=== PATIENT | male | born 1985 | race Caucasian/White ===

== ENCOUNTER 2020-03-12 18:28 | Emergency (ER) | payer BC, SELFPAY ==
[2020-03-12 18:34] VITALS: BP 146/93; PULSE 87; RESP 18; TEMP 36.8; O2SAT 100
[2020-03-12 18:37] VITALS: O2SAT 100
--- NOTE | 2020-03-12 19:17 | ED.GENADULT ---
HPI - General Adult General Chief complaint: Upper Respiratory Infection <Antonio Lou PA-C - Last Filed: 03/12/20 19:31> Stated complaint: cold symptoms <Antonio Lou PA-C - Last Filed: 03/12/20 19:31> Time Seen by Provider: 03/12/20 18:47 <Antonio Lou PA-C - Last Filed: 03/12/20 19:31> Source: patient <Antonio Lou PA-C - Last Filed: 03/12/20 19:31> Mode of arrival: ambulatory <Antonio Lou PA-C - Last Filed: 03/12/20 19:31> Limitations: no limitations <Antonio Lou PA-C - Last Filed: 03/12/20 19:31> History of Present Illness HPI narrative: Patient is a 34-year-old male who presents to emergency department noting that on he and his girlfriend developed upper respiratory symptoms have had fatigue congestion rhinorrhea no cough. Patient denies vomiting or diarrhea. Patient notes that he feels as though he is beginning to feel better. Patient notes that his girlfriend did have upper respiratory infection that was described as bacterial and she is also starting to get better. <Antonio Lou PA-C - Last Filed: 03/12/20 19:31> Related Data Home medications: Home Medications Medication Instructions Recorded Confirmed No Home Medications 03/12/20 03/12/20 <Antonio Lou PA-C - Last Filed: 03/12/20 19:31> Allergies/adverse reactions: Allergies Allergy/AdvReac Type Severity Reaction Status Date / Time No Known Allergies Allergy Verified 03/12/20 18:38 <Antonio Lou PA-C - Last Filed: 03/12/20 19:31> Review of Systems Review of Systems: All systems reviewed & are unremarkable except as noted in HPI and below <Antonio Lou PA-C - Last Filed: 03/12/20 19:31> [facility] Social History Social History: Social History (Updated 03/12/20 @ 19:28 by Antonio Lou PA-C) Tobacco type: e-cigarettes/vaping Gender identity (if verbalized by the patient): Male <Antonio Lou PA-C - Last Filed: 03/12/20 19:31> Exam Narrative: Exam Narrative: GENERAL: Well-appearing, well-nourished, and in no acute distress. HEAD: Normocephalic, atraumatic. EYES: PERRLA and EOMI. ENT: Nares clear, no rhinorrhea or epistaxis. Mucous membranes moist. Oropharynx without tonsillar hypertrophy exudate or other lesions. CHEST: Clear to auscultation. No respiratory distress. No wheezes rales or rhonchi HEART: Regular rate and rhythm. No murmur heard. EXTREMITIES: Normal range of motion. No edema. SKIN: Warm, dry, no rash. NEURO: No focal deficits. Alert and oriented x3. Cranial nerves II through XII grossly intact PSYCH: Normal mood and affect. <FAVIO Cardenas Last Filed: 03/12/20 19:31> Course Course Emergency Course: Patient in the room at this time aware of case findings treatment plan and diagnosis. Patient will be tested for COVID-19 advised to self quarantine until he has his results and given a primary care doctor that he can follow-up with as well <FAVIO Cardenas Last Filed: 03/12/20 19:31> Vital Signs Vital signs: Vital Signs Temperature 36.8 C 03/12/20 18:34 Pulse Rate 87 03/12/20 18:34 Respiratory Rate 18 03/12/20 18:34 Blood Pressure 146/93 H 03/12/20 18:34 Pulse Oximetry 100 03/12/20 18:34 Temperature 36.8 C 03/12/20 18:34 Pulse Rate 87 03/12/20 18:34 Respiratory Rate 18 03/12/20 18:34 Blood Pressure 146/93 H 03/12/20 18:34 Pulse Oximetry 100 03/12/20 18:37 <FAVIO Cardenas Last Filed: 03/12/20 19:31> Vital Signs Temperature 36.8 C 03/12/20 18:34 Pulse Rate 87 03/12/20 18:34 Respiratory Rate 18 03/12/20 18:34 Blood Pressure 146/93 H 03/12/20 18:34 Pulse Oximetry 100 03/12/20 18:34 Temperature 36.8 C 03/12/20 18:34 Pulse Rate 87 03/12/20 18:34 Respiratory Rate 18 03/12/20 18:34 Blood Pressure 146/93 H 03/12/20 18:34 Pulse Oximetry 100 03/12/20 18:37 <Mague Iglesias M
[2020-03-12 20:41] VITALS: BP 139/87; PULSE 82; RESP 20; O2SAT 97
[2020-03-13 17:02] LABS: SARS-CoV-2 RNA PCR Negative
== END 2020-03-12 20:45 | disposition home or self-care (01) ==
PROVIDERS: Emergency Medicine Emergency Medical Services; Emergency Provider Emergency Medicine
DX: J06.9 Acute upper respiratory infection, unspecified (principal); Z20.828 Contact with and (suspected) exposure to other viral communicable diseases
CPT/HCPCS: 87635; 99283; C9803; U0003

== ENCOUNTER 2021-10-29 16:58 | Emergency (ER) | payer OTHER, SELFPAY ==
--- NOTE | ~2021-10-29 | XR_ITS ---
XR ankle LT min 3V DATE: 10/29/2021 17:21 INDICATION: Injury. Lateral ankle swelling TECHNIQUE: 4 views COMPARISON: None FINDINGS: Very prominent anterolateral soft tissue swelling. No fracture or dislocation of the ankle or disruption of the ankle mortise is detected. IMPRESSION: Very prominent anterolateral soft tissue swelling of the ankle; no fracture or dislocatio n is detected Reviewed, dictated and finalized at location A. IMPRESSION: Very prominent anterolateral soft tissue swelling of the ankle; no fracture or dislocation is detected
[2021-10-29 17:10] VITALS: BP 141/72; PULSE 67; RESP 16; TEMP 37.3; O2SAT 100
--- NOTE | 2021-10-29 17:16 | ED.LOWEXIN ---
HPI - Extremity Injury (Lower) General Chief Complaint: Extremity Injury, Lower Stated Complaint: Left ankle Pain Time Seen by Provider: 10/29/21 17:17 Source: patient, RN notes reviewed and old records reviewed Mode of arrival: ambulatory Limitations: no limitations History of Present Illness HPI Narrative: 36-year-old male presents to the [facility] with complaints of left ankle pain. Patient states approximately 1530 today he was jumping off a truck and went to land on his feet when he twisted his left ankle inversely. Related Data Allergies Allergy/AdvReac Type Severity Reaction Status Date / Time No Known Allergies Allergy Verified 10/29/21 17:02 Review of Systems Review of Systems: All systems reviewed & are unremarkable except as noted in HPI and below Constitutional: Constitutional: Reports no additional constitutional complaints Eyes: Eyes: Reports no additional eye complaints ENT: Reports system reviewed and no additional complaints, except as documented Cardiovascular: Cardiovascular: Reports no additional cardiovascular complaints Respiratory: Respiratory: Reports no additional respiratory complaints Gastrointestinal: Gastrointestinal: Reports no additional gastrointestinal complaints Musculoskeletal: Musculoskeletal: Reports as per HPI, Reports arthralgias (Left lateral ankle) and Reports joint swelling (Left lateral) Integumentary/Breasts: Skin/Breast: Reports system reviewed and no additional complaints, except as docu Neurologic: Reports system reviewed and no additional complaints, except as documented Psychiatric: Psychiatric: Reports no additional psychiatric complaints Allergic/Immunologic: Allergic/Immunologic: Reports no additional allergic/immunologic complaints PMFSH Social History Social History Tobacco type: e-cigarettes/vaping Gender identity (if verbalized by the patient): Male Comments At the time of my signature, I reviewed and agree with the nursing past medical, surgical, social, and family history. There is no relevant family history pertinent to the patient complaint. Exam Const: General: healthy appearing, no acute distress and alert Nutritional Appearance: well nourished Orientation/consciousness: patient oriented x3 Limitations: no limitations HENMT: Head: normal to inspection Ears: external ears normal Eyes: Pupils: Equal, round and reactive pupils present Neck: Neck: normal visual inspection, no lymphadenopathy and no meningeal signs Chest: Chest palpation & inspection: normal inspection of the chest Resp: Effort & Inspection: normal respiratory effort Auscultation: clear to auscultation bilaterally Cardio: Rate: regular rate Rhythm: regular rhythm Back/Spine/Pelvis: Back: no CVA tenderness Skin: General skin exam: normal color Rashes: no rashes Neuro: General: patient oriented x3, moves all extremities, no meningeal signs and no focal motor deficits Cranial nerves: Yes Equal, round and reactive pupils present Speech: normal speech Gait exam (Neuro): Normal gait present Extrem: Left lower extremity: ankle Details: tenderness Location: of the lateral malleolus, swelling Details: laterally and ecchymosis (lateral malleolus) Psych: Appearance: grossly normal and well kempt Mental Status: mental status grossly normal Affect: normal affect Attitude: cooperative Thought content: Yes Normal thought content present Course Course Emergency Course: Discharge instructions reviewed with patient, as well as provided in writing per nursing staff. The instructions also include specific and strict return/GO TO THE ER as well as f/u information. All questions have been answered, and the patient deny any further questions with discharge and discharge plan. Some parts of this dictation were generated by voice recognition software and may contain typographical and/or grammatical inaccuracies. Level of Care: Exp
== END 2021-10-29 17:43 | disposition home or self-care (01) ==
PROVIDERS: Emergency Provider Nurse Practitioner
DX: S93.402A Sprain of unspecified ligament of left ankle, initial encounter (principal); S96.912A Strain of unspecified muscle and tendon at ankle and foot level, left foot, initial encounter; X50.9XXA Other and unspecified overexertion or strenuous movements or postures, initial encounter; F17.290 Nicotine dependence, other tobacco product, uncomplicated
CPT/HCPCS: 73610; 99213; G0463

== ENCOUNTER 2025-06-06 12:25 | Emergency (ER) | payer OTHER, SELFPAY ==
--- NOTE | 2025-06-06 12:27 | ED_ITS ---
HPI - General Adult General Chief complaint: Nausea/Vomiting/Diarrhea Stated complaint: Possibly Food Poisoning Time Seen by Provider: 06/06/25 12:36 Source: patient, RN notes reviewed and old records reviewed Mode of arrival: ambulatory Limitations: no limitations History of Present Illness HPI narrative: 39-year-old male presents to the [facility] with concerns of food poisoning. Patient states that Thursday he feels like he may have eaten something felt like he had food poisoning. Patient reports nausea vomiting diarrhea after eating. States that the nausea and vomiting are better today. Still had a couple of episodes of diarrhea this morning, had to call in sick to work. Denies fevers, denies any pain. Reports that he has a full feeling of the abdomen. Has taken Pepto-Bismol and Imodium. Able to keep water down, able to drink Pedialyte Onset (ago): day(s) (6) Related Data Allergies Allergy/AdvReac Type Severity Reaction Status Date / Time No Known Allergies Allergy Verified 06/06/25 12:27 Review of Systems Review of Systems: All systems reviewed & are unremarkable except as noted in HPI and below Constitutional: Constitutional: Reports no additional constitutional complaints ENT: Reports system reviewed and no additional complaints, except as documented Cardiovascular: Cardiovascular: Reports no additional cardiovascular complaints, Denies chest pain and Denies dyspnea Respiratory: Respiratory: Reports no additional respiratory complaints, Denies chest congestion, Denies cough and Denies dyspnea Gastrointestinal: Gastrointestinal: Reports as per HPI, Denies abdominal pain, Denies belching, Reports bloating, Reports diarrhea, Reports nausea and Reports vomiting Musculoskeletal: Musculoskeletal: Reports no additional musculoskeletal complaints Integumentary/Breasts: Skin/Breast: Reports system reviewed and no additional complaints, except as docu PMFSH Social History Social History Tobacco type: e-cigarettes/vaping Gender identity (if verbalized by the patient): Male Comments At the time of my signature, I reviewed and agree with the nursing past medical, surgical, social, and family history. There is no relevant family history pertinent to the patient complaint. Exam Const: General: cooperative, healthy appearing, comfortable, no acute distress, well developed, alert and well nourished Nutritional Appearance: well nourished Orientation/consciousness: patient oriented x3 Limitations: no limitations HENMT: Head: normal to inspection Ears: hearing grossly normal bilaterally, external ears normal, TM's normal bilaterally, EAC's normal, mastoids normal and no periauricular adenopathy Mouth: Yes Normal oral and palatal mucosa present, Yes lip normal, Yes tongue normal and Yes moist mucous membranes Throat: posterior oropharynx normal, uvula midline and no uvular edema Eyes: General: appearance normal, both eyes and all related structures Alignment and Position: alignment normal Neck: Neck: normal visual inspection, full ROM, no lymphadenopathy and no meningeal signs Chest: Chest palpation & inspection: normal inspection of the chest Resp: Effort & Inspection: normal respiratory effort and able to speak in complete sentences Auscultation: clear to auscultation bilaterally, no aircraft instrument mechanic ckles, no rales, no rhonchi and no wheezes Cardio: Rate: regular rate GI: GI Palp: No abdominal tenderness and Yes Soft to palpation Auscultation: Hyperactive bowel sounds present Skin: General skin exam: normal color and no rashes or lesions noted Neuro: General: patient oriented x3, gait normal, moves all extremities and no meningeal signs Cognition (Neuro): normal cognition Speech: normal speech Gait exam (Neuro): Normal gait present Extrem: General: normal to inspection, full ROM, capillary refill normal and normal gait Psych: Appearance: grossly normal and well kempt Mental Status: mental status grossly normal Speech and movement: Normal speech and movement present and Clear speech present Affect: normal affect Attitude: cooperative Course Course Level of Care: Express Care Visit Vital Signs Vital signs: Vital Signs Temperature 99.1 F 06/06/25 12:36 Pulse Rate 70 06/06/25 12:36 Respiratory Rate 20 06/06/25 12:36 Blood Pressure 155/84 H 06/06/25 12:36 Pulse Oximetry 97 06/06/25 12:36 Oxygen Delivery Room Air 06/06/25 12:36 Temperature 99.1 F 06/06/25 12:36 Pulse Rate 70 06/06/25 12:36 Respiratory Rate 20 06/06/25 12:36 Blood Pressure 155/84 H 06/06/25 12:36 Pulse Oximetry 97 06/06/25 12:36 Oxygen Delivery Room Air 06/06/25 12:36 reviewed MDM MDM Narrative Medical decision making narrative: patient sitting in exam room. Patient is nontoxic, vitals are stable except blood pressure elevated. Patient presents with concerns for food poisoning, symptoms have improved. Still having some nausea and diarrhea. Able to keep fluids down. Discussed signs and symptoms to proceed to the emergency room. patient does not appear dehydrated. Will send Zofran, encourage patient to keep taking in fluids. Two day work note given patient is appropriate for outpatient treatment with follow-up. Discharge instructions reviewed with patient, as well as provided in writing per nursing staff. The instructions also include specific and strict return/GO TO THE ER as well as f/u information. All questions have been answered, and the patient deny any further questions with discharge and discharge plan. Some parts of this dictation were generated by voice recognition software and may contain typographical and/or grammatical inaccuracies. Differential Diagnosis Differential Diagnosis: Differential diagnostic considerations for Nausea and diarrhea?include surgical abdominal etiology, ischemic bowel, inflammatory bowel disease, gastritis, PUD, gastroenteritis, cardiac etiology, appendicitis, diverticulitis, bowel obstruction, kidney stone, pyelonephritis, abdominal aortic aneurysm, pancre atitis, constipation, endometriosis. Medical Records I have reviewed the following patient records and this information was taken into consideration when formulating the assessment and plan.: previous ER visits Critical Care Time Critical Care Time Critical Care Time: No Discharge Plan Discharge Clinical Impression: Gastroenteritis Patient Disposition: Home Condition: Stable Instructions: Gastroenteritis (ED), Acute Nausea and Vomiting (ED), Acute Diarrhea (ED) Additional Instructions: If you are having a hard time finding a physician please call our [facility] group liaison at [phone]. today your blood pressure was 155/84. Is recommended follow-up with primary care provider for to fully evaluate your blood pressure. For for nausea vomiting and diarrhea we recommend that you do keep your diet very simple. Nothing fried, greasy, spicy or highly processed. For the 1st 24 hours strictly clear liquids to include water, Gatorade, Pedialyte, ice pops in Jell-O. For the next 24 hours keep your diet very simple. Nothing fried, greasy, spicy or highly processed for new or worsening symptoms please proceed to the nearest emergency room Patient Language: Citizen Of [place] Prescriptions: New ondansetron HCl 4 mg tablet 4 mg PO Q6H PRN (Reason: nausea and vomiting) Qty: 15 0RF Follow-up/Referrals: UNKNOWN,DOCTOR [Non-Staff] Stand Alone Forms: Work/School Release IP Time of Disposition: 12:50
[2025-06-06 12:36] VITALS: BP 155/84; PULSE 70; RESP 20; TEMP 37.3; O2SAT 97
== END 2025-06-06 13:00 | disposition home or self-care (01) ==
PROVIDERS: Emergency Provider Nurse Practitioner
DX: K52.9 Noninfective gastroenteritis and colitis, unspecified (principal); F17.290 Nicotine dependence, other tobacco product, uncomplicated
CPT/HCPCS: 99213; G0463